=== PATIENT | female | born 1955 | race Caucasian/White ===

== ENCOUNTER → 2024-08-03 | Outpatient (CLI) | payer MEDICARE, BC, SELFPAY ==
--- NOTE | 2024-08-03 | XR_ITS ---
Examination: Hand, right 3 views Technique: Hand AP, oblique, lateral 3 views Date and time of exam: July 26, 2024 0813 hours INDICATIONS: Hand pain beginning 4 months ago. FINDINGS: Moderate osteopenia Moderate osteoarthritis first carpometacarpal joint Mild osteoarthritis distal interphalangeal joints second through fifth digits and interphalangeal joint first digit No erosive arthritis No fractures IMPRESSION: Osteoarthritis as above
== END | disposition home or self-care (01) ==
LOC: CDIM 07:32
PROVIDERS: PCP Specialist; Referring Provider Specialist; Visit Provider Specialist
DX: M19.041 Primary osteoarthritis, right hand (principal)
CPT/HCPCS: 73130

== ENCOUNTER → 2024-08-09 | Outpatient (CLI) | payer MEDICARE, BC, SELFPAY ==
[2024-08-09 13:10] LABS: Basophils # (Auto) 0.1 Thou/mm3 (0.0-0.2); Basophils % (Auto) 1 % (0-2.5); Eosinophils # (Auto) 0.3 Thou/mm3 (0.0-0.5); Eosinophils % (Auto) 4 % (0-10); Hematocrit 40.3 % (36.0-46.0); Hemoglobin 13.4 g/dL (12.0-16.0); Immature Granulocytes % (Auto) 0 % (0-0); Immature Granulocytes Auto 0.01 Thou/mm3 (0.00-0.00); Lymphocytes # (Auto) 2.1 Thou/mm3 (1.0-4.8); Lymphocytes % (Auto) 30 % (10-50); Mean Corpuscular HGB Conc 33.3 g/dl (31.0-37.0); Mean Corpuscular Hemoglobin 30.9 pg (25.0-35.0); Mean Corpuscular Volume 93 fL (80-100); Monocytes # (Auto) 0.4 Thou/mm3 (0.0-0.8); Monocytes % (Auto) 6 % (0-12); Neutrophils # (Auto) 4.3 Thou/mm3 (1.8-7.7); Neutrophils % (Auto) 60 % (37-80); Nucleated Red Blood Cell % 0 /100 WBC (0); Platelet Count 256 Thou/mm3 (140-440); RDW Standard Deviation 43.3 fL (36.4-46.3); Red Blood Count 4.33 Miln/mm3 (4.00-5.20); White Blood Count 7.1 Thou/mm3 (3.6-11.0)
[2024-08-09 13:27] LABS: Parathyroid Hormone Intact 58.8 pg/ml (18.5-88.0)
[2024-08-09 13:33] LABS: Alanine Aminotransferase 41 U/L (10-49); Albumin, Serum 4.5 gm/dL (3.4-4.8); Albumin/Globulin Ratio 1.8 (1.2-2.2); Alkaline Phosphatase 166 U/L (46-116); Anion Gap 9 (7-16); Aspartate Amino Transferase 26 U/L (0-34); BUN/Creatinine Ratio 29 Ratio (12-20); Bilirubin,Total 0.5 mg/dL (0.3-1.2); Blood Urea Nitrogen 20 mg/dL (9-23); Calcium 9.9 mg/dL (8.3-10.6); Calcium (Corrected) 9.9 mg/dL (8.5-10.1); Carbon Dioxide 28.6 mMol/L (20.0-31.0); Cardiac Risk Estimate 2.3 RATIO (3.7-5.6); Chloride 104 mMol/L (98-107); Cholesterol 113 mg/dL (132-200); Creatinine (Component) 0.7 mg/dL (0.6-1.3); Globulin 2.5 gm/dL (2.3-3.5); Glucose 103 mg/dL (74-106); HDL Cholesterol 49 mg/dL (40-60); LDL Cholesterol,Calculated 23 mg/dL (0-130); Osmolality,Calculated 285 (275-295); Potassium 4.5 mMol/L (3.4-5.1); Sodium 142 mMol/L (136-145); Thyroid Stimulating Hormone 1.02 uIU/mL (0.55-4.78); Triglycerides 203 mg/dL (30-150); eGFR > 60 See Note
[2024-08-09 13:53] LABS: Iron 91 mcg/dL (50-170); Percent Iron Saturation 33 % (20-55); Total Iron Binding Capacity 274 mcg/dL (250-425); Unsaturated Iron Binding 183 (225-295)
[2024-08-09 14:02] LABS: Folate 23.76 ng/mL (>5.38); Vitamin B12 550 pg/mL (211-911)
[2024-08-16 06:38] LABS: Vitamin D, 25-OH, D2 <4 ng/mL; Vitamin D, 25-OH, D3 24 ng/mL; Vitamin D, 25-OH, Total 24 ng/mL (30-100)
== END | disposition home or self-care (01) ==
LOC: COPL 11:27
PROVIDERS: PCP Specialist; Referring Provider Specialist; Visit Provider Specialist
DX: D50.9 Iron deficiency anemia, unspecified (principal); E83.51 Hypocalcemia; E78.5 Hyperlipidemia, unspecified; G60.3 Idiopathic progressive neuropathy; K75.81 Nonalcoholic steatohepatitis (NASH)
CPT/HCPCS: 36415; 80053; 80061; 82105; 82306; 82607; 82746; 83540; 83550; 83970; 84443; 85025

== ENCOUNTER → 2024-08-30 | Outpatient (CLI) | payer MEDICARE, BC, SELFPAY ==
--- NOTE | 2024-08-30 13:20 | XR_ITS ---
Examination: Bone densitometry Date and time of exam:August 30, 2024 1346 hrs. Indications: Hysterectomy age 35 Technique: Lumbar spine and hip total bone mineralization values of an calculated. Peak reference and age match control results have been displayed. Findings: Lumbar spine total bone mineralization is1.129 gm/cm2. This is 0.7 standard deviations above peak reference. This is 2. standard deviations above age-matched controls. Hip total bone mineralization is 0.941 gm/cm2 This is 0.0 standard deviations at peak reference. This is 1.5 standard deviations above age-matched controls Impression: There is normal mineralization based on lumbar spine measurements. There is normal mineralization based on hip measurements Lumbar mineralization is decreased 1.6% compared with December 05, 2020 Hip mineralization is increase 0.2% compared with December 05, 2020
== END | disposition home or self-care (01) ==
LOC: CDIM 13:08
PROVIDERS: Referring Provider Specialist; Visit Provider Specialist
DX: Z13.820 Encounter for screening for osteoporosis (principal); Z78.0 Asymptomatic menopausal state
CPT/HCPCS: 77080

== ENCOUNTER → 2024-09-07 | Outpatient (CLI) | payer MEDICARE, BC, SELFPAY ==
--- NOTE | 2024-09-07 10:30 | XR_ITS ---
Examination: Thyroid sonography complete TECHNIQUE: Grayscale sonographic images thyroid lobes, color flow analysis Exam date and time: 2024 1033 hours INDICATIONS: Palpable mass right thyroid on clinical thyroid examination by provider this week, history thyroid cancer, mother FINDINGS: Right thyroid 3.3 cm Upper pole nodule 3 x 2 mm Left thyroid 4.1 cm Upper pole nodule 6 x 7 mm IMPRESSION: Small bilateral thyroid nodules
== END | disposition home or self-care (01) ==
LOC: CDIM 10:22
PROVIDERS: PCP Specialist; Referring Provider Specialist; Visit Provider Specialist
DX: E04.2 Nontoxic multinodular goiter (principal)
CPT/HCPCS: 76536

== ENCOUNTER → 2024-11-22 | Outpatient (CLI) | payer MEDICARE, BC, SELFPAY ==
[2024-11-23 13:10] LABS: Cocci Serology, IgM Negative (Negative)
[2024-11-24 11:13] LABS: Cocci Serology, IgG Negative (Negative)
== END | disposition home or self-care (01) ==
PROVIDERS: PCP Specialist; Referring Provider Specialist; Visit Provider Specialist
DX: R05.9 Cough, unspecified (principal)
CPT/HCPCS: 36415; 86331; 86635

== ENCOUNTER → 2024-11-23 | Outpatient (CLI) | payer MEDICARE, BC, SELFPAY ==
--- NOTE | 2024-11-23 15:03 | XR_ITS ---
Examination: PA lateral chest 2 views TECHNIQUE: Upright PA and lateral chest 2 views Date and time: November 23, 2024 1606 hours Comparison January 30, 2015 INDICATIONS: Coughing one week. FINDINGS: Pneumonia in the posterior basal segment left lower lobe obscuring detail posterior left hemidiaphragm Normal heart size No pulmonary edema Moderate osteopenia IMPRESSION: Pneumonia posterior basal segment left lower lobe
== END | disposition home or self-care (01) ==
PROVIDERS: PCP Specialist; Referring Provider Specialist; Visit Provider Specialist
DX: J18.9 Pneumonia, unspecified organism (principal); R05.3 Chronic cough
CPT/HCPCS: 71046

== ENCOUNTER → 2025-01-26 | Outpatient (CLI) | payer MEDICARE, BC, SELFPAY ==
[2025-01-26 11:38] LABS: Collection Type, Urine Clean Catch
[2025-01-26 12:23] LABS: Bilirubin,Urine Negative (Negative); Blood,Urine 2+ (Negative); Clarity,Urine Turbid (Clear/Hazy); Color,Urine Yellow (Lt Yel-Yel); Glucose, Urine Negative (Negative); Ketones,Urine Negative (Negative); Leukocyte Esterase,Urine Positive (Negative); Nitrite,Urine Positive (Negative); PH,Urine 6.0 (5.0-7.0); Protein,Urine 1+ (Neg - Trace); RBC,Urine 58 /hpf (0-3); Specific Gravity,Urine 1.017 (1.001-1.035); Squamous Epithelial Cell,Urine 4 /hpf (0-5); Urobilinogen,Urine Negative mg/dL (0.0-1.0); WBC,Urine 321 /hpf (0-5)
== END | disposition home or self-care (01) ==
LOC: SLDO 11:25
PROVIDERS: PCP Specialist; Referring Provider Specialist; Visit Provider Specialist
DX: R10.9 Unspecified abdominal pain (principal)
CPT/HCPCS: 81001; 87077; 87086; 87186

== ENCOUNTER → 2025-01-27 | Outpatient (CLI) | payer MEDICARE, BC, SELFPAY ==
--- NOTE | 2025-01-27 10:27 | XR_ITS ---
Examination: Retroperitoneal ultrasound, complete Technique: Multiple high resolution grayscale images of the retroperitoneum obtained, including kidneys and bladder. Exam date and time:January 27, 2025 1043 hours INDICATIONS: Bilateral flank pain and hematuria noticed beginning one week ago. FINDINGS: Right kidney 10.2 cm cortex 1.4 cm Minimal right hydronephrosis Left kidney 10.4 cm cortex 1.9 cm No hydronephrosis Mild right moderate left renal scar formation No bladder mass or bladder calculi Bladder prevoid volume 257 cc IMPRESSION: Minimal right hydronephrosis, clinical correlation advised
== END | disposition home or self-care (01) ==
PROVIDERS: PCP Specialist; Referring Provider Specialist; Visit Provider Specialist
DX: N13.30 Unspecified hydronephrosis (principal)
CPT/HCPCS: 76770

== ENCOUNTER → 2025-01-31 | Outpatient (CLI) | payer MEDICARE, BC, SELFPAY ==
--- NOTE | 2025-01-31 10:30 | XR_ITS ---
Examination: Screening digital mammography, bilateral Computer aided detection 3-D breast Tomosynthesis, bilateral Date and time of exam: January 31, 2025 1027 hours Compared to mammograms dating to August 16, 2021 Indication: Screening Technique: Nonmagnified MLO, CC views of the breasts to been obtained, reconstructed from 3-D Tomosynthesis images. R2 computer aided detection program utilized for evaluation of suspicious masses and/or abnormal calcifications. 3-D Tomosynthesis images obtained. Findings: Scattered areas of fibroglandular density Benign calcifications No interval suspicious masses Impression: BI-RADS category II: Benign Findings. Recommend 1 year follow-up mammogram.
[2025-01-31 11:56] LABS: Free T4 (Free Thyroxine) 1.08 ng/dL (0.89-1.76); Thyroid Stimulating Hormone 1.01 uIU/mL (0.55-4.78)
[2025-02-03 13:51] LABS: Thyroglobulin Antibodies <1 IU/mL (< OR = 1)
[2025-02-04 06:22] LABS: Thyroglobulin 3.4 ng/mL
== END | disposition home or self-care (01) ==
LOC: CDIM 10:24 → COPL 10:37
PROVIDERS: PCP Specialist; Referring Provider Specialist; Visit Provider Specialist
DX: Z12.31 Encounter for screening mammogram for malignant neoplasm of breast (principal); R92.323 Mammographic fibroglandular density, bilateral breasts; R92.1 Mammographic calcification found on diagnostic imaging of breast; E04.2 Nontoxic multinodular goiter
CPT/HCPCS: 36415; 77063; 77067; 84432; 84439; 84443; 86800

== ENCOUNTER → 2025-02-22 | Outpatient (CLI) | payer MEDICARE, BC, SELFPAY | END | disposition home or self-care (01) | LOC: SLDO 16:12 | PROVIDERS: PCP Specialist; Referring Provider Specialist; Visit Provider Specialist | DX: N39.0 Urinary tract infection, site not specified (principal) | CPT/HCPCS: 87077; 87086; 87186 ==

== ENCOUNTER → 2025-03-25 | Outpatient (CLI) | payer MEDICARE, BC, SELFPAY ==
[2025-03-25 12:10] LABS: Basophils # (Auto) 0.1 Thou/mm3 (0.0-0.2); Basophils % (Auto) 1 % (0-2.5); Eosinophils # (Auto) 0.3 Thou/mm3 (0.0-0.5); Eosinophils % (Auto) 5 % (0-10); Hematocrit 40.5 % (36.0-46.0); Hemoglobin 13.4 g/dL (12.0-16.0); Immature Granulocytes Auto 0.02 Thou/mm3 (0.00-0.00); Lymphocytes # (Auto) 2.3 Thou/mm3 (1.0-4.8); Lymphocytes % (Auto) 34 % (10-50); Mean Corpuscular HGB Conc 33.1 g/dl (31.0-37.0); Mean Corpuscular Hemoglobin 32.4 pg (25.0-35.0); Mean Corpuscular Volume 98 fL (80-100); Monocytes # (Auto) 0.5 Thou/mm3 (0.0-0.8); Monocytes % (Auto) 7 % (0-12); Neutrophils # (Auto) 3.6 Thou/mm3 (1.8-7.7); Neutrophils % (Auto) 52 % (37-80); Nucleated Red Blood Cell # 0.00 Thou/mm3 (0.00-0.00); Nucleated Red Blood Cell % 0 /100 WBC (0); Platelet Count 249 Thou/mm3 (140-440); RDW Standard Deviation 46.0 fL (36.4-46.3); Red Blood Count 4.14 Miln/mm3 (4.00-5.20); White Blood Count 6.8 Thou/mm3 (3.6-11.0)
[2025-03-25 12:28] LABS: Alanine Aminotransferase 22 U/L (10-49); Albumin, Serum 4.4 gm/dL (3.4-4.8); Albumin/Globulin Ratio 1.9 (1.2-2.2); Alkaline Phosphatase 107 U/L (46-116); Anion Gap 9 (7-16); Aspartate Amino Transferase 22 U/L (0-34); BUN/Creatinine Ratio 17 Ratio (12-20); Bilirubin,Total 0.5 mg/dL (0.3-1.2); Blood Urea Nitrogen 15 mg/dL (9-23); Calcium 9.9 mg/dL (8.3-10.6); Calcium (Corrected) 9.9 mg/dL (8.5-10.1); Carbon Dioxide 28.7 mMol/L (20.0-31.0); Chloride 103 mMol/L (98-107); Creatinine (Component) 0.9 mg/dL (0.6-1.3); Globulin 2.3 gm/dL (2.3-3.5); Glucose 153 mg/dL (74-106); Osmolality,Calculated 285 (275-295); Potassium 4.2 mMol/L (3.4-5.1); Sodium 141 mMol/L (136-145); Total Protein 6.7 gm/dL (5.7-8.2); Troponin I < 0.002 ng/mL (0.0-0.045); eGFR > 60 See Note
[2025-03-25 12:31] LABS: Sed Rate (ESR) 5 mm/hr (0-30)
== END | disposition home or self-care (01) ==
LOC: COPL 11:42
PROVIDERS: PCP Specialist; Referring Provider Specialist; Visit Provider Specialist
DX: R07.9 Chest pain, unspecified (principal)
CPT/HCPCS: 36415; 80053; 84484; 85025; 85652